=== PATIENT | male | born 1955 | race Caucasian/White ===

== ENCOUNTER 2021-08-31 17:54 | Emergency (ER) | payer MEDICAID ==
[~2021-08-31] VITALS: Ht 177.8 cm; Wt 86.2 kg
[2021-08-31] MEDS ORDERED: OLANZAPINE 5MG TABLET ODT PO ONE (18:15)
[2021-08-31] MEDS ORDERED: LORAZEPAM 1MG TABLET PO ONE (18:15)
[2021-08-31 18:22] LABS: EOSINOPHILS % 3.6 % (0.0-5.0); HEMATOCRIT. 42.3 % (42.0-52.0); HEMOGLOBIN. 14.4 g/dL (14.0-18.0); LYMPHOCYTES % 29.1 % (20.0-50.0); MEAN CORPUSCULAR HEMOGLOBIN 30.2 pg (28.0-32.0); MEAN PLATELET VOLUME 7.9 fl (7.4-10.4); MONOCYTES % 10.4 % (2.0-8.0); NEUTROPHILS % 55.9 % (40.0-76.0); PLATELET 283 x1000/uL (130-400); RED BLOOD CELL COUNT 4.75 mill/uL (4.7-6.1); RED CELL DISTRIBUTION WIDTH 14.9 % (11.6-14.6)
[2021-08-31 18:37] LABS: CHLORIDE 106 mEq/L (98-107)
[2021-08-31 18:43] LABS: ETHANOL BLOOD < 10 mg/dL
[2021-08-31] MEDS ORDERED: LORAZEPAM 1MG TABLET PO NR (20:15)
[2021-08-31] MEDS ORDERED: OLANZAPINE 5MG TABLET ODT PO NR (20:15)
[2021-08-31 20:34] LABS: CLARITY URINE CLEAR (CLEAR); COLOR URINE YELLOW (YELLOW); KETONES URINE NEGATIVE (NEGATIVE); LEUKOCYTE ESTERASE URINE NEGATIVE (NEGATIVE); NITRITE URINE NEGATIVE (NEGATIVE); OCCULT BLOOD URINE NEGATIVE (NEGATIVE); PROTEIN URINE NEGATIVE (NEGATIVE); UROBILINOGEN URINE 0.2 E.U./dL (0.2-1.0)
[2021-08-31 20:48] LABS: *AMPHETAMINES SCREEN URINE NEGATIVE (NEGATIVE); *BARBITURATES SCREEN URINE NEGATIVE (NEGATIVE); *BENZODIAZEPINES SCREEN URINE NEGATIVE (NEGATIVE); *COCAINE SCREEN URINE NEGATIVE (NEGATIVE); CANNABINOID URINE SCREEN NEGATIVE (NEGATIVE); METHADONE URINE SCREEN NEGATIVE (NEGATIVE); OPIATES URINE SCREEN NEGATIVE (NEGATIVE); PHENCYCLIDINE URINE SCREEN NEGATIVE (NEGATIVE)
[2021-09-01] MEDS: DIVALPROEX SODIUM 500MG DR TABLET PO SCH ×2 (08:48→20:30)
[2021-09-01] MEDS ORDERED: LORAZEPAM 1MG TABLET PO ONE (17:00)
[2021-09-01] MEDS: QUETIAPINE FUMARATE 50MG TABLET PO SCH (20:30)
[2021-09-02] MEDS: DIVALPROEX SODIUM 500MG DR TABLET PO SCH ×2 (08:05→19:58)
[2021-09-02] MEDS: LORAZEPAM 0.5MG TABLET PO PRN ×2 (13:16→19:58)
[2021-09-02] MEDS: QUETIAPINE FUMARATE 50MG TABLET PO SCH (19:58)
[2021-09-03] MEDS ORDERED: QUETIAPINE FUMARATE 50MG TABLET PO SCH (09:00)
[2021-09-03] MEDS: DIVALPROEX SODIUM 500MG DR TABLET PO SCH ×2 (09:33→21:39)
[2021-09-03] MEDS ORDERED: IBUPROFEN 400MG TABLET PO ONE (10:00)
[2021-09-03] MEDS ORDERED: ACETAMINOPHEN 325MG TABLET PO ONE (10:00)
[2021-09-03] MEDS ORDERED: HYDROCODONE/APAP 7.5/325MG 1 TAB TABLET PO ONE (10:15)
[2021-09-03] MEDS: LORAZEPAM 0.5MG TABLET PO PRN (17:46)
[2021-09-03] MEDS: QUETIAPINE FUMARATE 50MG TABLET PO SCH (21:26)
[2021-09-03 22:00] VITALS: BP 104/64
== END 2021-09-04 01:10 ==
LOC: ER 17:54
DX: F30.2 Manic episode, severe with psychotic symptoms (principal); R45.850 Homicidal ideations; F15.10 Other stimulant abuse, uncomplicated; M54.50 Low back pain, unspecified; Z96.649 Presence of unspecified artificial hip joint; Z20.822 Contact with and (suspected) exposure to COVID-19; Z75.1 Person awaiting admission to adequate facility elsewhere
CPT/HCPCS: 36415; 80053; 80305; 80307; 80320; 80329; 81003; 85025; 87426; 99285; C9803; U0003; U0005; Z7610; G0480